=== PATIENT | female | born 1975 | race Caucasian/White ===

== ENCOUNTER 2020-04-07 02:05 | Outpatient (CLI) | payer OTHER, SELFPAY ==
[2020-04-07 20:00] LABS: SARS-CoV-2 RNA PCR Negative
== END 2020-04-07 02:06 | disposition home or self-care (01) ==
LOC: ANHCOVIDDT 02:05
PROVIDERS: Visit Provider Obstetrics & Gynecology
DX: Z01.818 Encounter for other preprocedural examination (principal); Z20.828 Contact with and (suspected) exposure to other viral communicable diseases
CPT/HCPCS: 87635; C9803; U0003

== ENCOUNTER 2020-04-07 08:11 | Outpatient (CLI) | payer OTHER, SELFPAY | END 2020-04-07 08:12 | disposition home or self-care (01) | LOC: ANHSURGERY 08:17 | PROVIDERS: Visit Provider Obstetrics & Gynecology | DX: Z01.818 Encounter for other preprocedural examination (principal); Z20.828 Contact with and (suspected) exposure to other viral communicable diseases | CPT/HCPCS: 36415; 86850; 86900; 86901 ==

== ENCOUNTER 2020-04-10 01:31 | Day surgery (SDC) | payer OTHER, SELFPAY ==
[2020-04-04 10:23] VITALS: BMI 23.5
--- NOTE | 2020-04-07 14:16 | WPDANESEPPF ---
Anes - Initial Pre Proc Eval Procedure: Operation Date: 04/10/20 11:00 Proposed Procedures p Laparoscopic Assisted Total Vaginal Hysterectomy - Bayron Howell MD Date/Time: 04/07/20 14:16 Surgeon: Bayron Howell MD Pre Op Diagnosis: Menorrhagia Patient Data Age: 45 Gender: F Height: 1.7 m Weight: 68.04 kg Allergies Allergy/AdvReac Type Severity Reaction Status Date / Time levofloxacin Allergy Rash Verified 04/10/20 09:29 Home Medications Medication Instructions Recorded Confirmed Type Acidophilus Probiotic 2 tablet PO DAILY 04/04/20 04/10/20 History cyclobenzaprine 10 mg PO PRN PRN 04/04/20 04/10/20 History norethindrone ac-eth estradiol 1 tablet PO DAILY 04/04/20 04/10/20 History [05/10 ()] Patient hx anesthesia problems: none Family hx anesthesia problems: none PMFSH Past Medical History Medical History (Updated 04/07/20 @ 14:17 by Jorge Liz DO) Back pain Seizure 2011 Surgical History Surgical History (Updated 04/07/20 @ 14:17 by Jorge Liz DO) History of tubal ligation Social History Social History Tobacco type: e-cigarettes/vaping Additional smoking assessment comments: 5 YEARS VAPING Other substance usage details: 16 YEARS CLEAN Living arrangements: with family Gender identity (if verbalized by the patient): Female Spiritual care concerns: No Anes - Eval Final PreProcedure Day of Procedure 04/07/20 14:16 Patient weight: normal Heart: regular rate and rhythm Lungs: clear to auscultation and normal air movement Airway: Mallampati scale class II Neurological: alert and oriented Last oral intake: >/= 8 hours ASA classification: III Emergent: no Anesthetic plan: proceed Anesthesia type and monitoring: general ETT and standard monitoring Informed Consent: The patient's anesthetic plan and its attendant risks and benefits were discussed with the patient/family/POA. Questions were solicited and answers provided to the satisfaction of the patient/family/POA.
[2020-04-10] VITALS (14 sets, daily range): BP systolic 128–153; BP diastolic 72–95; PULSE 59–95; RESP 12–18; TEMP 36.3–37.2; O2SAT 97–100; BMI 23.8
[2020-04-10] MEDS: LACTATED RINGERS 1,000 ML 30 ML IV CONT ×2 (10:28→12:47)
[2020-04-10] MEDS: ACETAMINOPHEN 500 MG TABLET 1000 MG PO (10:30)
[2020-04-10] MEDS: KETOROLAC 15 MG/ML VIAL (*BKC) IV PUSH (10:30)
--- NOTE | 2020-04-10 10:47 | WPDHPUPDATE1 ---
History and Physical Update Update Date/Time: 04/10/20 10:47 History and Physical has been reviewed, including an updated exam of the patient. There are NO changes in the patient's condition. Risks, benefits, and alternatives have been discussed and questions answered. Patient agrees to proceed with procedure.
--- NOTE | 2020-04-10 13:03 | PM.PROC ---
Procedure Note - Detailed Date of procedure: 04/10/20 Pre-op diagnosis: Menorrhagia Myoma Post-op diagnosis: same Procedure performed: Total laparoscopic hysterectomy bilateral salpingectomy Description of procedure: The patient was taken to the operating room. She was prepped and draped in the dorsal lithotomy position. A speculum was placed in the vagina. The cervix was grasped with a tenaculum. Stay sutures were placed at 3 and 9:00 a.m. of 0 Vicryl. The stay sutures were brought through the Bob up. The HAROON manipulator was placed in the vagina with a fixed Bob cup. The cup was then pushed up around the cervix. The sutures were tied to the handle of the HAROON manipulator. A 5 mm incision was made on the abdominal skin of the left upper quadrant using a scalpel. A 5 mm trocar was inserted into the intra-abdominal cavity under direct visualization the scope. Pneumoperitoneum was achieved. An 11 mm incision was made in the left lower quadrant of the abdomen with a scalpel. A 11 mm trocar was inserted into the intra-abdominal cavity under direct visualization the scope. A 5 mm periumbilical incision was made. A 5 mm scope was placed into the intra-abdominal cavity under direct visualization of the scope. The primary fallopian tube tissue was cauterized between tube ovary. This was done in bilateral fashion where the paratubal tissue was cauterized in a stepwise fashion around the tube to the mid tubal area. The suspensory ligament of the ovary was cauterized and transected with ligature cautery in a bilateral fashion. The fallopian tubes were cauterized and transected in a bilateral fashion with LigaSure cautery. The round ligaments were cauterized and transected in bilateral fashion with LigaSure cautery. The round ligaments were cauterized and transected bilaterally with LigaSure cautery. The broad ligaments were cauterized and transected along the lateral aspects of the uterus down the level of the uterine arteries. A bladder flap was created using sharp and blunt dissection. The ureters were dissected out bilaterally down to the level of the uterine arteries. They could be visualized from the pelvic brim down the uterine arteries. Staying very close to the cervix the parametrium was cauterized transected in a stepwise fashion down to the level of the Bob cup. The Bladder flap was moved distally over the Bob cup using sharp and blunt dissection. The impression of the entire cup was visualized around the cervix. An incision was made with unipolar cautery down under the Bob cup creating a colpotomy incision all the way around the cervix. The uterus and tubes was taken out through the vagina. A pneumo occluder was placed in the vagina. The vagina was closed with 0 V lock suture in a running fashion. The ureters were identified again and found to be intact to the level of the uterine arteries. The pelvis was irrigated with a copious amount of antibiotic irrigation. The pneumoperitoneum was reduced. The trocars were removed. The skin was closed subcuticular 4 Monocryl covered with Dermabond. The pneumo occluder was removed from the vagina. The vagina was irrigated with Betadine. The patient tolerated the procedure well. She was taken to the recovery room in stable condition. Sponge lap and needle counts were correct x2. Anesthesia: GETA Surgeon: Bayron Howell MD Estimated blood loss (mL): 200 Drains: No Packing: No Pathology: yes Complications: No immediate complications Condition: stable Disposition: PACU Findings: Grossly normal appearing tubes and ovaries. Uterus - 10cm
[2020-04-10] MEDS: fentaNYL CITRATE INJ (*CRX) 100 MCG/2 ML VIAL 25 MCG IV PUSH ×4 (13:16→13:22)
--- NOTE | 2020-04-10 13:45 | PC.NURSE ---
This patient, Graciela Elizondo, was received from PACU per bed to room 283. Patient/family oriented to unit policies and routines
[2020-04-10] MEDS: KETOROLAC 30 MG/ML VIAL (*BKC) IV PUSH (16:09)
[2020-04-10] MEDS: HYDROcodone/acetaminophen (*CRX) 5-325 MG TABLET 1 TAB PO (20:14)
[2020-04-10] MEDS: IBUPROFEN 600 MG TABLET PO (22:23)
[2020-04-11 04:00] VITALS: BP 129/77; PULSE 77; RESP 14; TEMP 37; O2SAT 99
[2020-04-11] MEDS: IBUPROFEN 600 MG TABLET PO ×2 (05:12→12:06)
[2020-04-11 07:20] VITALS: BP 136/81; PULSE 73; RESP 16; TEMP 36.6; O2SAT 98
[2020-04-11] MEDS: HYDROcodone/acetaminophen (*CRX) 5-325 MG TABLET 1 TAB PO (08:06)
--- NOTE | 2020-04-11 08:56 | WPDANESPN ---
Anes - Prog Note Post-Op Date/Time: 04/11/20 08:56 Cardiovascular status: normal Respiratory status: normal Airway patency: baseline Mental status: baseline Post-Op hydration status: normal Vital Signs: Last Vital Signs Temp 37.0 C 04/11/20 04:00 Pulse 77 04/11/20 04:00 Resp 14 04/11/20 04:00 BP 129/77 04/11/20 04:00 Pulse Ox 99 04/11/20 04:00 Pain Score (VAS): 2 I/O: Intake & Output 04/10/20 04/11/20 04/11/20 23:59 07:59 15:59 Intake Total 600 Output Total 1750 500 Balance -1150 -500 Post-procedural complaints: none Patient Feedback: Patient satisfied with anesthetic care.
--- NOTE | 2020-04-11 10:59 | PM.GYNPNOP ---
LACE PAPER MACHINE OPERATOR - A/P Postoperative Procedures: Procedures Operation Date: 04/10/20 11:00 Actual Procedures Side Surgeon p Laparoscopic Assisted Total Vaginal Hysterectomy Bayron oHwell MD Postoperative day: 1 Postoperative status: doing well and other (Tollerating Regular Diet) Postoperative plan: routine post-op care and discharge Time Spent With Patient Time: Total time spent is greater than 50% in coordination of care (as documented) at patient's floor/unit and/or counseling patient: Time with patient: 15 - 25 minutes LACE PAPER MACHINE OPERATOR- PN:Subj Post-Op Subjective Date/time seen: 04/11/20 10:59 Subjective: patient reports feeling better, pain is well controlled and patient is tolerating oral intake Exam Const: General: cooperative, healthy appearing, comfortable and no acute distress Resp: Auscultation: no crackles, no rales, no rhonchi and no wheezes Cardio: Rhythm: regular rhythm Heart sounds: no click and no murmurs GI: Inspection: non-distended Auscultation: normal bowel sounds Other: Incisions - CDI Extrem: General: normal to inspection, no pedal edema and no calf tenderness LACE PAPER MACHINE OPERATOR - PN: Obj Data Vital Signs Vital Signs: Vital Signs - 24 hr 04/10/20 12:47 04/10/20 13:00 04/10/20 13:15 Temperature 97.4 F L Pulse Rate 87 60 61 Respiratory Rate 16 18 12 Blood Pressure 153/95 H 152/85 H 153/81 H Pulse Oximetry 100 100 100 04/10/20 13:30 04/10/20 13:52 04/10/20 14:00 Temperature 97.8 F Pulse Rate 64 66 61 Respiratory Rate 12 16 16 Blood Pressure 145/85 H 135/77 128/75 Pulse Oximetry 100 97 99 04/10/20 14:15 04/10/20 14:30 04/10/20 15:00 Temperature 97.9 F Pulse Rate 59 L 59 L 72 Respiratory Rate 16 16 16 Blood Pressure 135/72 135/82 140/78 Pulse Oximetry 100 100 100 04/10/20 16:00 04/10/20 17:00 04/10/20 21:50 Temperature 98.2 F 98.2 F Pulse Rate 87 85 82 Respiratory Rate 18 18 16 Blood Pressure 131/82 131/75 137/86 Pulse Oximetry 100 98 98 04/10/20 23:15 04/11/20 04:00 04/11/20 07:20 Temperature 98.2 F 98.6 F 98 F Pulse Rate 93 77 73 Respiratory Rate 16 14 16 Blood Pressure 147/86 H 129/77 136/81 Pulse Oximetry 98 99 98 Intake/Output Intake/Output: Intake & Output 04/08/20 04/09/20 04/10/20 04/11/20 23:59 23:59 23:59 23:59 Intake Total 850 Output Total 1850 500 Balance -1000 -500 Meds/Results Medications: Active Medications Generic Name Dose Route Start Last Admin Trade Name Freq PRN Reason Stop Dose Admin Hydrocodone Bitart/Acetaminophen 1 tab 04/10/20 13:37 04/11/20 08:06 Hydrocodone/Acetaminophen (*Crx) 5-325 Mg Tablet PO 1 tab Q3H PRN Administration Pain Rated 5 or Less Hydrocodone Bitart/Acetaminophen 1 tab 04/10/20 13:37 Hydrocodone/Acetaminophen (*Crx) 10-325 Mg Tablet PO Q3H PRN Pain Rated 6 or Greater Ibuprofen 600 mg 04/10/20 13:37 04/11/20 05:12 Ibuprofen 600 Mg Tablet PO 600 mg Q6H PRN Administration Cramping Ketorolac Tromethamine 30 mg 04/10/20 13:37 04/10/20 16:09 Ketorolac 30 Mg/Ml Vial (*Bkc) IV PUSH 04/15/20 13:38 30 mg Q6H PRN Administration Pain Rated 4-6 Naloxone HCl 0.1 mg 04/10/20 13:37 Naloxone Hcl 0.4 Mg/Ml Vial IV PUSH Q2M PRN Respiratory rate less than 10 Ondansetron HCl 4 mg 04/10/20 13:37 Ondansetron Inj 4 Mg/2 Ml Vial IV PUSH Q6H PRN Nausea And Vomiting
== END 2020-04-11 12:45 | disposition home or self-care (01) ==
LOC: ANHSURGERY 09:09 → ANHOB2 15:28
PROVIDERS: Visit Provider Obstetrics & Gynecology
PROC: 0UT9FZZ Resection of Uterus, Via Natural or Artificial Opening With Percutaneous Endoscopic Assistance (ICD-10-PCS; CPT 58571; principal; 2020-04-10 11:00)
DX: N92.0 Excessive and frequent menstruation with regular cycle (principal); Z87.891 Personal history of nicotine dependence; N80.0 Endometriosis of uterus; D25.2 Subserosal leiomyoma of uterus
CPT/HCPCS: 58571; 36415; 86850; 86900; 86901; 87635; 88307; 99199; A9270; C9803; J0330; J1100; J1885; J2250; J2405; J2704; J2710; J3010; J7120; U0003

== ENCOUNTER 2021-06-26 08:11 | Outpatient (CLI) | payer OTHER, SELFPAY ==
--- NOTE | ~2021-06-26 | MMUS_ITS ---
EXAMINATION: MM diagnostic mallika BI w [facility], US breast BI limited HISTORY: The breast pain TECHNIQUE: Additional 3-D tomosynthesis images of the breasts were performed and synthetic 2-D images were generated. CAD analysis was submitted and interpreted. High resolution Limited bilateral breast ultrasound was performed. COMPARISON: None BREAST PARENCHYMAL COMPOSITION: Breast composed of scattered areas of fibroglandular density FINDINGS: MAMMOGRAPHIC FINDINGS: There are no suspicious masses, calcifications or architectural distortion in either breast. ULTRASOUND: Complete bilateral US of all 4 quadrants of the breasts and retroareolar region was reviewed. No susp icious masses or fluid collections in either breast to suggest malignancy. IMPRESSION: 1. No evidence for malignancy in either breast. 2. Routine yearly screening mammogram and regular clinical breast examination are recommended. BI-RADS Category 2: Benign finding(s). Reviewed, dictated and finalized at location A. CULTURAL SALES REPRESENTATIVE IMPRESSION: 1. No evidence for malignancy in either breast. 2. Routine yearly screening mammogram and regular clinical breast examination a re recommended. BI-RADS Category 2: Benign finding(s).
== END 2021-06-26 08:12 ==
PROVIDERS: PCP Internal Medicine; Visit Provider Obstetrics & Gynecology
DX: N64.4 Mastodynia (principal)
CPT/HCPCS: 76642; 77062; 77066; G0279